=== PATIENT | female | born 1980 | race Caucasian/White ===

== ENCOUNTER 2016-05-26 11:59 | Emergency (ER) | payer SELFPAY ==
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
[~2016-05-26 11:59] MED LIST: ADDERALL PO; ELMIRON100 MG PO; LITHIUM CARBON300 M2 PO; NASAL SPRAY
== END 2016-05-26 12:56 | disposition home or self-care (01) ==
LOC: SED 11:59
DX: S13.4XXA Sprain of ligaments of cervical spine, initial encounter (principal); S40.012A Contusion of left shoulder, initial encounter; F31.9 Bipolar disorder, unspecified; F90.9 Attention-deficit hyperactivity disorder, unspecified type; Z87.891 Personal history of nicotine dependence; Z88.0 Allergy status to penicillin; Z79.899 Other long term (current) drug therapy; V49.40XA Driver injured in collision with unspecified motor vehicles in traffic accident, initial encounter; Y93.89 Activity, other specified; Y92.410 Unspecified street and highway as the place of occurrence of the external cause
CPT/HCPCS: 71020; 72125; 73030; 99284

== ENCOUNTER 2016-09-30 14:34 | Emergency (ER) | payer SELFPAY ==
[~2016-09-30] VITALS: Ht 149.9 cm; Wt 68.0 kg
--- NOTE | ~2016-09-30 | CR127 ---
[facility] A Service of [facility] RADIOLOGY TEXT RESULTS PATIENT: SHAMAR RAGSDALE LOCATION: [facility] : [birth year] UNIT #: [id number] AGE: [address]: Elaina Lyn SEX: F ORDER DR: [id number] [facility] [address] [place], [place] [address] [id number] E MR#: [id number] Acc #: [id number] NAME: SHAMAR RAGSDALE : 1980 SEX: F STUDY DATE/TIME: 09/30/2016 15:20 UNIT: [facility] ROOM: STUDY DESCRIPTION: CR Foot Complete Min 3 View Rt Attending Physician: Elaina Lyn Pa-C Ordering Physician: Ambrosio Truong M.D. Primary Care Physician: No Primary Care Physician MEDICAL IMAGING REPORT This report is preliminary unless electronic signature is present EXAM Right foot, 09/30/2016, [facility]. HISTORY 35-year-old female; pain, swelling, and tingling right foot. Patient dropped bench on foot 2 days ago. FINDINGS 3 views of the right foot demonstrate no fracture with intact cortex. Mineralization is preserved. Small joints are maintained. Soft tissues are normal, with some soft tissue swelling over the dorsum of the forefoot. IMPRESSION Dorsal soft tissue swelling over the metatarsals or forefoot. No visible fracture. Dictated by... Velasquez Wolf M.D. THIS IS AN ELECTRONICALLY VERIFIED REPORT Velasquez Wolf M.D. at 10/03/2016 7:58 AM Shyam TD: 09/30/2016 18:55 JOB #: [id number] MEDICAL IMAGING REPORT Page 1 of 1 COPY
== END 2016-09-30 16:05 | disposition home or self-care (01) ==
LOC: CFTX 14:34 → CED 14:34 → CFTX 15:38
DX: S90.31XA Contusion of right foot, initial encounter (principal); Z79.899 Other long term (current) drug therapy; Z88.0 Allergy status to penicillin; W20.8XXA Other cause of strike by thrown, projected or falling object, initial encounter; Y92.009 Unspecified place in unspecified non-institutional (private) residence as the place of occurrence of the external cause
CPT/HCPCS: 73630; 99283